=== PATIENT | female | born 1975 | race Caucasian/White ===

== ENCOUNTER 2017-06-24 18:07 | Emergency (ER) | payer BC, OTHER ==
[2017-06-24 18:19] VITALS: BP 123/88
[2017-06-24] MEDS ORDERED: Cyclobenzaprine TAB* 10 MG PO ONE (18:53)
[2017-06-24] MEDS ORDERED: Acetaminophen TAB* 325 MG PO ONE (18:53)
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
== END 2017-06-24 20:20 | disposition home or self-care (01) ==
LOC: UCEAST 18:07
DX: S16.1XXA Strain of muscle, fascia and tendon at neck level, initial encounter (principal); V43.62XA Car passenger injured in collision with other type car in traffic accident, initial encounter; Y92.410 Unspecified street and highway as the place of occurrence of the external cause; M79.7 Fibromyalgia
CPT/HCPCS: 72020; 72050; 99213; A9270-GY; G0463